=== PATIENT | female | born 1960 | race African-American/Black ===

== ENCOUNTER 2024-02-26 19:49 | Inpatient (IN) | payer MEDICARE, SELFPAY ==
[~2024-02-26 19:49] MED LIST: Iopamidol 370 76% 100 ML VIAL ONE
[2024-02-26 20:37] LABS: #Basophils 0.07 10x3/uL (0.0-0.2); #Eosinphils 0.27 10x3/uL (0.0-0.5); #Neutrophils 3.12 10x3/uL (1.5-8.4); %Basophils 1.2 % (0.0-2.0); %Eosinophils 4.7 % (0.0-6.0); %Lymphocytes 33.9 % (18.0-47.0); %Monocytes 5.2 % (0.0-10.0); %Neutrophils 54.7 % (40.0-75.0); Hematocrit 42.9 % (34.9-44.5); Hemoglobin 14.1 g/dL (12.0-15.5); Mean Corpuscular HGB CONC 32.9 g/dL (32.0-36.0); Mean Corpuscular Hemoglobin 26.8 pg (27.0-33.0); Mean Corpuscular Volume 81.4 fL (81.6-98.3); Mean Platelet Volume 10.8 fL (7.4-10.4); Platelet Count 282 10x3/uL (150-450); RBC Distribution Width 13.6 % (11.5-14.5); Red Blood Cell (RBC) Count 5.27 10x6/uL (3.90-5.03); White Blood Cell (WBC) Count 5.7 10x3/uL (3.5-10.5)
[2024-02-26 20:40] LABS: BHCG - Serum Negative (NEGATIVE); Pregs Control Background? CLEAR/WHITE (CLR/WHITE); Pregs Control Bar Appear? YES (CONTROL BAR)
[2024-02-26 20:45] LABS: PTT 21.5 sec (22.0-33.0); Prothrombin Time 10.5 sec (9.5-12.1)
[2024-02-26 20:50] LABS: ALT (SGPT) 15 U/L (8-55); AST (SGOT) 40 U/L (5-34); Albumin 3.4 g/dL (3.4-4.8); Alkaline Phosphatase 79 U/L (40-110); Anion Gap 15 mmol/L (10-20); BUN (Urea Nitrogen) 24 mg/dL (9.8-20.1); Bilirubin, Total 0.4 mg/dL (0.2-1.2); Calc. Creatinine Clearance 0 mL/min (70-130); Calcium 9.7 mg/dL (7.8-10.44); Carbon Dioxide 24 mmol/L (23-31); Chloride 105 mmol/L (98-107); Estimated GFR 50; Globulin 4.1 g/dL (2.4-3.5); Glucose 111 mg/dL (80-115); Potassium 5.3 mmol/L (3.5-5.1); Protein, Total 7.5 g/dL (5.8-8.1); Sodium 139 mmol/L (136-145); Troponin I 0.014 ng/mL (< 0.028)
[2024-02-26] MEDS ORDERED: Aspirin Chewable 81 MG TAB ONE (21:07)
[2024-02-26 21:22] LABS: Bilirubin Neg (Negative); Blood, Urine 10 (Negative); Clarity Clear (Clear); Glucose, Urine (Dipstick) >=1000 mg/dL (Negative); Ketone, Urine Negative (Negative); Leukocyte Negative (Negative); Nitrite Negative (Negative); Protein, Urine (Dipstick) 100 mg/dl (Neg-Trace); Urobilinogen Normal mg/dL (Less than 2)
[2024-02-26 21:35] LABS: Bacteria/HPF Rare-Few HPF (None Seen); CAUTI Indications for Culture Alt mental st,lethar; RBC/HPF 0-3 HPF (0-3); Squamous Epithelial 0-3 HPF (0-3); Urine Culture Reflex No No; WBC/HPF 0-3 HPF (0-3)
[2024-02-26] MEDS ORDERED: Ondansetron PF 4 MG/2 ML Vial IVP PRN (21:36)
[2024-02-26] MEDS ORDERED: Ondansetron ODT 4 MG TAB PO PRN (21:36)
[2024-02-26] MEDS ORDERED: traMADol HCl 50 MG TAB PO PRN (21:36)
[2024-02-26] MEDS ORDERED: Dextrose 5% in Water 1,000 ML IV PRN (22:06)
[2024-02-26] MEDS ORDERED: Dextrose 50% Abboject 50 ML SYRINGE SLOW IVP PRN (22:06)
[2024-02-26] MEDS ORDERED: Glucagon 1 MG/ML KIT IM PRN (22:06)
[2024-02-26] MEDS ORDERED: HumaLOG 300 UNITS/3 ML VIAL SC PRN ×2 (22:06)
[2024-02-26 22:57] VITALS: BMI 30.6
[2024-02-27] MEDS: Acetaminophen 325 MG TAB PO SCH (00:22)
[2024-02-27] MEDS: Atorvastatin Calcium 40 MG TAB PO SCH ×3 (01:00→20:57)
[2024-02-27 03:45] LABS: #Basophils 0.06 10x3/uL (0.0-0.2); #Eosinphils 0.25 10x3/uL (0.0-0.5); #Monocytes 0.36 10x3/uL (0.0-1.1); #Neutrophils 3.66 10x3/uL (1.5-8.4); %Basophils 0.9 % (0.0-2.0); %Eosinophils 3.9 % (0.0-6.0); %Lymphocytes 32.3 % (18.0-47.0); %Monocytes 5.6 % (0.0-10.0); %Neutrophils 57.1 % (40.0-75.0); Hematocrit 38.3 % (34.9-44.5); Hemoglobin 12.6 g/dL (12.0-15.5); Mean Corpuscular HGB CONC 32.9 g/dL (32.0-36.0); Mean Corpuscular Hemoglobin 26.6 pg (27.0-33.0); Mean Platelet Volume 10.7 fL (7.4-10.4); Platelet Count 253 10x3/uL (150-450); RBC Distribution Width 13.4 % (11.5-14.5); Red Blood Cell (RBC) Count 4.73 10x6/uL (3.90-5.03); White Blood Cell (WBC) Count 6.4 10x3/uL (3.5-10.5)
[2024-02-27 03:59] LABS: ALT (SGPT) 12 U/L (8-55); AST (SGOT) 32 U/L (5-34); Albumin 2.9 g/dL (3.4-4.8); Alkaline Phosphatase 69 U/L (40-110); Anion Gap 12 mmol/L (10-20); BUN (Urea Nitrogen) 24 mg/dL (9.8-20.1); Bilirubin, Total 0.3 mg/dL (0.2-1.2); Calc. Creatinine Clearance 72 mL/min (70-130); Calcium 9.2 mg/dL (7.8-10.44); Carbon Dioxide 24 mmol/L (23-31); Cardiac Risk 4.9 (Less than 4.5); Chloride 105 mmol/L (98-107); Cholesterol 182 mg/dl (< 200 Desired); Estimated GFR 54; Globulin 3.2 g/dL (2.4-3.5); Glucose 115 mg/dL (80-115); HDL Cholesterol 37 mg/dL (>60 Neg Risk); LDL Cholesterol, Calculated 102 mg/dL; Potassium 4.2 mmol/L (3.5-5.1); Protein, Total 6.1 g/dL (5.8-8.1); Sodium 137 mmol/L (136-145); Triglycerides 214 mg/dL (Less than 150)
[2024-02-27] MEDS: Ketorolac Tromethamine 30 MG (1 mL) VIAL IVP PRN (08:23)
[2024-02-27] MEDS: Clopidogrel Bisulfate 75 MG TAB PO SCH (08:24)
[2024-02-27] MEDS: Folic Acid 1 MG TAB PO SCH (08:25)
[2024-02-27] MEDS: Cyanocobalamin (Vitamin B-12) 1,000 MCG TAB PO SCH (08:25)
[2024-02-27] MEDS: Aspirin 81 mg Enteric Coated Tablet PO SCH (08:25)
[2024-02-27] MEDS: Heparin 5,000 UNITS/ML VIAL SC SCH (08:25)
[2024-02-27] MEDS: Pantoprazole 40 MG VIAL IVP SCH (08:25)
[2024-02-27] MEDS ORDERED: Bumetanide 1 MG TAB PO SCH (09:00)
[2024-02-27 12:46] LABS: Hemoglobin A1c 6.3 % (4.0-6.0)
[2024-02-27] MEDS: Colestipol 1 GM TAB PO SCH (12:56)
[2024-02-27] MEDS: Apixaban 5 MG TAB PO SCH (20:54)
[2024-02-27] MEDS: Metoprolol Tartrate 50 MG TAB PO SCH (20:54)
[2024-02-27] MEDS ORDERED: Colestipol 1 GM TAB PO SCH (21:00)
[2024-02-27] MEDS ORDERED: Enoxaparin 80 MG (0.8 mL) SYRINGE SC SCH (21:00)
[2024-02-28 05:25] VITALS: TEMP 98.4
[2024-02-28 07:43] VITALS: BP 170/86
[2024-02-28] MEDS: Cholecalciferol 1,000 UNITS (25 MCG) TAB PO SCH (08:56)
[2024-02-28] MEDS: metFORMIN 500 MG TAB PO SCH (08:57)
[2024-02-28] MEDS: Aspirin 81 mg Enteric Coated Tablet PO SCH (08:57)
[2024-02-28] MEDS: Lisinopril 20 MG TAB PO SCH (08:57)
[2024-02-28] MEDS ORDERED: Bumetanide 1 MG TAB PO SCH (09:00)
[2024-02-28] MEDS ORDERED: Clopidogrel Bisulfate 75 MG TAB PO SCH (09:00)
[2024-02-29] MEDS ORDERED: Pantoprazole DR 40 MG TAB PO SCH (09:00)
== END 2024-02-28 09:50 | disposition home or self-care (01) | DRG 65 ==
LOC: CSHERS 19:49 → CSHTELE 21:39 → OBSVTOIN 02-27 17:55 → CSHTELE 02-27 18:27
PROVIDERS: ADMIT Internal Medicine; ATTEND Internal Medicine
DX: I63.9 Cerebral infarction, unspecified (principal); I13.0 Hypertensive heart and chronic kidney disease with heart failure and stage 1 through stage 4 chronic kidney disease, or unspecified chronic kidney disease; N17.9 Acute kidney failure, unspecified; I50.9 Heart failure, unspecified; I25.10 Atherosclerotic heart disease of native coronary artery without angina pectoris; R47.81 Slurred speech; F03.90 Unspecified dementia, unspecified severity, without behavioral disturbance, psychotic disturbance, mood disturbance, and anxiety; E87.5 Hyperkalemia; E11.9 Type 2 diabetes mellitus without complications; E66.9 Obesity, unspecified; E78.5 Hyperlipidemia, unspecified; I16.0 Hypertensive urgency; F01.50 Vascular dementia, unspecified severity, without behavioral disturbance, psychotic disturbance, mood disturbance, and anxiety; N18.9 Chronic kidney disease, unspecified; E11.22 Type 2 diabetes mellitus with diabetic chronic kidney disease; Z79.82 Long term (current) use of aspirin; Z90.49 Acquired absence of other specified parts of digestive tract; Z68.30 Body mass index [BMI] 30.0-30.9, adult; Z79.899 Other long term (current) drug therapy; Z95.1 Presence of aortocoronary bypass graft; Z95.5 Presence of coronary angioplasty implant and graft; Z79.84 Long term (current) use of oral hypoglycemic drugs
CPT/HCPCS: 0042T; 36415; 36416; 70450; 70551; 71045; 80053; 80061; 81001; 83036; 84484; 84703; 85025; 85610; 85730; 93005; 93306; 96372; 96374; 96375; C9113; G0378; J1644; J1815; J1885; Q9967